=== PATIENT | female | born 1990 | race Two or more races ===

== ENCOUNTER 2020-05-10 09:09 | Emergency (ER) | payer OTHER, SELFPAY ==
--- NOTE | ~2020-05-10 | CT_ITS ---
EXAMINATION: HEAD CT WITHOUT CONTRAST CLINICAL INFORMATION: Fall COMPARISON: None TECHNIQUE: Axial images through the brain without contrast. Sagittal and coronal reconstructions on the technologist workstation were performed. Patient dose 6 9 5 mg/cm. FINDINGS: There is no evidence of an extra-axial collection. There is no evidence of intra-axial or extra-axial hemorrhage. The ventricles and extra-axial CSF spaces are appropriate. Baldwin-white matter differentiation is normal. No mass, mass effect or infarct is seen. Review at bone windows is normal. No skull fracture is seen. CT/CT abdomen pelvis w con IMPRESSION: Unremarkable exam EXAMINATION: CT of the chest, abdomen and pelvis with IV contrast CLINICAL INFORMATION: Trauma COMPARISON: None. TECHNIQUE: Axial images through the chest, abdomen and pelvis following oral and IV contrast. The patient received 85 mL Omnipaque 350 intravenous contrast. Sagittal and coronal reconstructions on the technologist workstation were performed. Patient dose 260+5 2 8 mg/cm FINDINGS: Chest: The lungs are clear. There is no pleural effusion or pleural thickening or pneumothorax. The heart and mediastinum are normal. No chest wall mass or enlarged axillary lymph nodes. Bony structures are unremarkable. Abdomen and pelvis: The liver spleen pancreas adrenal glands kidneys and gallbladder are normal. Small and large bowel is normal. No free air or free fluid is seen. Vascular structures are normal. No hernia is seen. The uterus and adnexa and bladder are normal. No fracture is seen. IMPRESSION: Unremarkable exam.
--- NOTE | ~2020-05-10 | XR_ITS ---
EXAMINATION: XR SHOULDER, RIGHT CLINICAL INFORMATION: Fall, trauma, pain COMPARISON: None TECHNIQUE: The right shoulder is imaged in 3 views. FINDINGS: There is no fracture or dislocation. The acromioclavicular alignment is normal. There are no visible rotator cuff calcifications. The right lung apex is clear. No pneumothorax or pleural reaction. XR/XR shoulder RT min 2V IMPRESSION: Normal right shoulder.
--- NOTE | ~2020-05-10 | CT_ITS ---
EXAMINATION: HEAD CT WITHOUT CONTRAST CLINICAL INFORMATION: Fall COMPARISON: None TECHNIQUE: Axial images through the brain without contrast. Sagittal and coronal reconstructions on the technologist workstation were performed. Patient dose 6 9 5 mg/cm. FINDINGS: There is no evidence of an extra-axial collection. There is no evidence of intra-axial or extra-axial hemorrhage. The ventricles and extra-axial CSF spaces are appropriate. Baldwin-white matter differentiation is normal. No mass, mass effect or infarct is seen. Review at bone windows is normal. No skull fracture is seen. CT/CT head/brain wo con IMPRESSION: Unremarkable exam EXAMINATION: CT of the chest, abdomen and pelvis with IV contrast CLINICAL INFORMATION: Trauma COMPARISON: None. TECHNIQUE: Axial images through the chest, abdomen and pelvis following oral and IV contrast. The patient received 85 mL Omnipaque 350 intravenous contrast. Sagittal and coronal reconstructions on the technologist workstation were performed. Patient dose 260+5 2 8 mg/cm FINDINGS: Chest: The lungs are clear. There is no pleural effusion or pleural thickening or pneumothorax. The heart and mediastinum are normal. No chest wall mass or enlarged axillary lymph nodes. Bony structures are unremarkable. Abdomen and pelvis: The liver spleen pancreas adrenal glands kidneys and gallbladder are normal. Small and large bowel is normal. No free air or free fluid is seen. Vascular structures are normal. No hernia is seen. The uterus and adnexa and bladder are normal. No fracture is seen. IMPRESSION: Unremarkable exam.
--- NOTE | ~2020-05-10 | XR_ITS ---
EXAMINATION: RIGHT KNEE X-RAY CLINICAL INFORMATION: Fall. Trauma. COMPARISON: None TECHNIQUE: 4 views of the right knee FINDINGS: Bone alignment is normal. No fracture or dislocation is seen. There is no joint effusion. There is soft tissue swelling over the patellar tendon. XR/XR knee RT 4V IMPRESSION: No fracture seen. Soft tissue swelling over the patellar tendon. EXAMINATION: Right ankle x-ray CLINICAL INFORMATION: Pain. Trauma. COMPARISON: None. TECHNIQUE: 3 views of the right ankle FINDINGS: Bone alignment is normal. No fracture or dislocation is seen. The ankle mortise is normal. Soft tissues are normal. IMPRESSION: Unremarkable examination.
--- NOTE | ~2020-05-10 | XR_ITS ---
EXAMINATION: RIGHT KNEE X-RAY CLINICAL INFORMATION: Fall. Trauma. COMPARISON: None TECHNIQUE: 4 views of the right knee FINDINGS: Bone alignment is normal. No fracture or dislocation is seen. There is no joint effusion. There is soft tissue swelling over the patellar tendon. XR/XR ankle RT min 3V IMPRESSION: No fracture seen. Soft tissue swelling over the patellar tendon. EXAMINATION: Right ankle x-ray CLINICAL INFORMATION: Pain. Trauma. COMPARISON: None. TECHNIQUE: 3 views of the right ankle FINDINGS: Bone alignment is normal. No fracture or dislocation is seen. The ankle mortise is normal. Soft tissues are normal. IMPRESSION: Unremarkable examination.
--- NOTE | ~2020-05-10 | CT_ITS ---
EXAMINATION: HEAD CT WITHOUT CONTRAST CLINICAL INFORMATION: Fall COMPARISON: None TECHNIQUE: Axial images through the brain without contrast. Sagittal and coronal reconstructions on the technologist workstation were performed. Patient dose 6 9 5 mg/cm. FINDINGS: There is no evidence of an extra-axial collection. There is no evidence of intra-axial or extra-axial hemorrhage. The ventricles and extra-axial CSF spaces are appropriate. Baldwin-white matter differentiation is normal. No mass, mass effect or infarct is seen. Review at bone windows is normal. No skull fracture is seen. CT/CT chest w con IMPRESSION: Unremarkable exam EXAMINATION: CT of the chest, abdomen and pelvis with IV contrast CLINICAL INFORMATION: Trauma COMPARISON: None. TECHNIQUE: Axial images through the chest, abdomen and pelvis following oral and IV contrast. The patient received 85 mL Omnipaque 350 intravenous contrast. Sagittal and coronal reconstructions on the technologist workstation were performed. Patient dose 260+5 2 8 mg/cm FINDINGS: Chest: The lungs are clear. There is no pleural effusion or pleural thickening or pneumothorax. The heart and mediastinum are normal. No chest wall mass or enlarged axillary lymph nodes. Bony structures are unremarkable. Abdomen and pelvis: The liver spleen pancreas adrenal glands kidneys and gallbladder are normal. Small and large bowel is normal. No free air or free fluid is seen. Vascular structures are normal. No hernia is seen. The uterus and adnexa and bladder are normal. No fracture is seen. IMPRESSION: Unremarkable exam.
[2020-05-10 09:45] VITALS: BP 135/64; PULSE 88; RESP 16; O2SAT 100; BMI 28.3
[2020-05-10 10:07] LABS: MANUAL DIFF FLAG NO
[2020-05-10 10:09] LABS: Basophils Percent Auto 0.2 % (0-2); Eosinophils Absolute Auto 0.1 X10*3/uL (0.0-0.4); Eosinophils Percent Auto 1.1 % (0-4); Imm Gran Abs Auto 0.02 X10*3/uL (0.00-0.03); Imm Gran Pct Auto 0.2 % (0.0-0.4); Lymphocytes Absolute Auto 2.7 X10*3/uL (1.2-4.9); Lymphocytes Percent Auto 28.8 % (20-40); Mean Corpuscular HGB Conc 34.1 g/dl (31.0-35.0); Mean Corpuscular Hemoglobin 31.2 pg (27.0-33.0); Mean Corpuscular Volume 91.3 fL (80-98); Mean Platelet Volume 9.7 fL (9.4-12.3); Monocytes Absolute Auto 0.8 X10*3/uL (0.1-1.2); Monocytes Percent Auto 8.1 % (2-11); Neutrophils Absolute Auto 5.8 X10*3/uL (2.0-8.3); Neutrophils Percent Auto 61.6 % (45-73); Platelet Count 305 X10*3/uL (160-400); Red Blood Count 4.49 X10*6/uL (4.20-5.50); Red Cell Distribution Width 13.2 % (11.0-16.0); White Blood Count 9.4 X10*3/uL (4.8-10.8)
[2020-05-10] MEDS: ondansetron HCL 4 MG/2 ML VIAL IVPUSH (10:15)
[2020-05-10] MEDS: 0.9 % Sodium Chloride 1,000 ML 999 ML IV (10:15)
[2020-05-10 10:22] LABS: Prothrombin Time 11.5 SEC (10.8-13.0)
[2020-05-10 10:29] LABS: Alanine Aminotransferase 13 U/L (0-31); Albumin Level 4.4 g/dL (3.5-5.0); Alkaline Phosphatase 81 U/L (39-117); Anion Gap 16 (12-20); Aspartate Amino Transferase 27 U/L (5-31); Blood Urea Nitrogen 9 mg/dL (9-16); Carbon Dioxide 26 mmol/L (22-29); Chloride 104 mmol/L (96-108); Creatinine Clr Calc Pharmacy 91.8; Estimated Glomerular Filt Rate > 60; Glucose Random 85 mg/dL (60-115); Potassium 4.2 mmol/L (3.3-5.1); Sodium 142 mmol/L (135-145); Total Protein 7.7 g/dL (6.5-8.0)
[2020-05-10 10:35] LABS: HCG Quantitative < 2 mIU/mL
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
[2020-05-10 12:09] VITALS: BP 128/88; RESP 18; TEMP 36.9; O2SAT 98
[2020-05-10] MEDS: oxyCODONE HCl Immed Release 5 MG TABLET PO (12:47)
== END 2020-05-10 13:27 | disposition home or self-care (01) ==
PROVIDERS: Nurse Practitioner Primary Care; Emergency Provider Emergency Medicine
DX: S93.401A Sprain of unspecified ligament of right ankle, initial encounter (principal); S96.911A Strain of unspecified muscle and tendon at ankle and foot level, right foot, initial encounter; S39.012A Strain of muscle, fascia and tendon of lower back, initial encounter; S40.011A Contusion of right shoulder, initial encounter; S80.211A Abrasion, right knee, initial encounter; V86.55XA Driver of 3- or 4- wheeled all-terrain vehicle (ATV) injured in nontraffic accident, initial encounter; R11.0 Nausea; F17.200 Nicotine dependence, unspecified, uncomplicated; Y93.89 Activity, other specified; Y92.096 Garden or yard of other non-institutional residence as the place of occurrence of the external cause; Y99.8 Other external cause status
CPT/HCPCS: 36415; 70450; 71260; 73030; 73564; 73610; 74177; 80053; 84702; 85025; 85610; 85730; 96361; 96374; 99284; J2405; Q9967

== ENCOUNTER 2020-07-11 01:00 | Emergency (ER) | payer OTHER, SELFPAY ==
[2020-07-11] VITALS (13 sets, daily range): BP systolic 109–141; BP diastolic 52–86; PULSE 81–144; RESP 16–25; TEMP 36.2–37; O2SAT 95–98; BMI 26.4
--- NOTE | 2020-07-11 01:08 | ED_ITS ---
HPI - Alcohol General Chief Complaint: ETOH/Substance Use Stated Complaint: etoh combative. Time Seen by Provider: 07/11/20 01:08 Source: EMS Mode of arrival: EMS History of Present Illness HPI narrative: 30-year-old female who was found in her apartment complex going from door to door being on people's AC units and observed to be intoxicated. Please were involved to restrain patient as she was unwilling and uncooperative when attempts were made to deescalate patient's observed agitation. Otherwise, currently patient is a poor historian and remaining HPI will be obtained after patient becomes more sober. Related Data Previous Rx's Medication Instructions Recorded ibuprofen 800 mg PO Q8H PRN #30 tab 05/10/20 oxycodone 5 mg PO Q8H PRN 3 Days #10 tab 05/10/20 Allergies Allergy/AdvReac Type Severity Reaction Status Date / Time gluten [GLUTEN] Allergy Unknown STOMACH Unverified 11/06/19 19:06 UPSET Review of Systems Review of Systems: Yes Unobtainable due to mental condition PMFSH Past Medical History Source: nursing notes reviewed Medical History Celiac disease Social History Social History Alcohol intake: current Alcohol intake frequency: does not drink Smoking Status: Current every day smoker Use of substances other than those prescribed or required for medical reasons: Yes Substance Use Type: Marijuana Advance Directives: No Advance Directives Information Provided: No Patient : No Physical Exam Vital Signs: Vital Signs: Last Vital Signs Temp 98.2 F 07/11/20 08:00 Pulse 81 07/11/20 08:00 Resp 18 07/11/20 08:00 BP 132/52 L 07/11/20 08:00 Pulse Ox 95 07/11/20 08:00 Body Mass Index 26.4 VITAL SIGNS: Reviewed. GENERAL: Well developed, well nourished, moderate to severely agitated HEAD: Normocephalic/atraumatic EYES: PERRLA, EOMI OROPHARYNX: no oral lesions noted, posterior pharynx clear, noted whitish substance at the corner of patient's mouth NECK: Supple, no adenopathy LUNGS: Normal breath sounds. No adventitious sounds or accessory muscle use. SpO2<95> CARDIOVASCULAR: Regular rate and rhythm without noted murmurs ABDOMEN: Soft, non-tender, non-distended with bowel sounds. Abrasions noted to bilateral hands NEUROLOGIC: Alert and oriented x 2. PSYCH: Patient agitated, screaming and yelling, attempting to bite healthcare providers. Course Course Course Narrative: This is a 30-year-old female with history and clinical presentation consistent with substance intoxication thought to be alcohol but possibly other substances as well. Patient had to be chemically and physically restrained for her safety as well as healthcare worker safety as she was unable to be deescalated. DCF was notified as there were concerns that her 2 small children were in the vicinity while she was intoxicated and belligerent. Review of all investigations negative for any acute findings other than alcohol and marijuana. On re-evaluation much later in the morning patient is noted to be calm and cooperative and apologetic regarding her actions. She denies any suicidal intent or thoughts leading to her outburst last night. She states that her neighbor gave her some new alcohol that she did not even realize how much content it must have had. She states she can get a safe ride home and is stable for discharge to the transportation provided by her family. Behavioral health team also evaluated the patient and recommends outpatient therapy and treatment but otherwise feels that she is a safe discharge. Reevaluation(s) Reevaluation #1: On re-evaluation patient is much more calm and will attempt to remove physical restraint. Time: 02:20 [facility] - Alcohol Lab Data Labs: Lab Results 07/11/20 07/11/20 07/11/20 Range/Units 02:39 03:00 03:00 Urine Color STRAW Urine Appearance HAZY Urine pH 6.0 (5.0-8.0) Ur Specific Herscher <= 1.005 (1.005-1.025) Urine Protein NEG (NEG-TRACE) MG/DL Urine Glucose (UA) NEG (NEG) MG/DL Urine Ketones NEG (NEG) MG/DL Urine Blood TRACE (NEG) Urine Nitrite NEG (NEG) Ur Leukocyte Esterase NEG (NEG) Urine RBC 0-2 (0) /HPF Urine WBC 0-2 (0-4) /HPF Ur Squamous Epith Cells 3+ /LPF Amorphous Sediment TRACE /LPF Urine Bacteria TRACE /LPF Urine Test NEGATIVE (NEGATIVE) Urine Opiates Screen (Not Detect) Ur Barbiturates Screen (Not Detect) Ur Phencyclidine Scrn (Not Detect) Ur Amphetamines Screen (Not Detect) U Benzodiazepines Scrn (Not Detect) Urine Cocaine Screen (Not Detect) U Marijuana (THC) Screen (Not Detect) Ethyl Alcohol 299 mg/dL 07/11/20 Range/Units 03:00 Urine Color Urine Appearance Urine pH (5.0-8.0) Ur Specific Herscher (1.005-1.025) Urine Protein (NEG-TRACE) MG/DL Urine Glucose (UA) (NEG) MG/DL Urine Ketones (NEG) MG/DL Urine Blood (NEG) Urine Nitrite (NEG) Ur Leukocyte Esterase (NEG) Urine RBC (0) /HPF Urine WBC (0-4) /HPF Ur Squamous Epith Cells /LPF Amorphous Sediment /LPF Urine Bacteria /LPF Urine Test (NEGATIVE) Urine Opiates Screen Not Detected (Not Detect) Ur Barbiturates Screen Not Detected (Not Detect) Ur Phencyclidine Scrn Not Detected (Not Detect) Ur Amphetamines Screen Not Detected (Not Detect) U Benzodiazepines Scrn Not Detected (Not Detect) Urine Cocaine Screen Not Detected (Not Detect) U Marijuana (THC) Screen POSITIVE H (Not Detect) Ethyl Alcohol mg/dL Discharge Plan Discharge Clinical Impression: Abrasion, Alcohol intoxication Patient Disposition: Home, Self-Care Instructions: Alcohol Intoxication (ED), Abrasion (ED) Additional Instructions: Please follow-up with the recommendations provided to you by the behavioral he alth team. Please follow-up with your primary care provider in 2-3 days. Return to the ER if you experience any worsening of your symptoms. Prescriptions: No Action oxycodone 5 mg tablet 5 mg PO Q8H PRN (Reason: pain) 3 Days Qty: 10 RF: 0 ibuprofen 800 mg tablet 800 mg PO Q8H PRN (Reason: pain) Qty: 30 RF: 0 Referrals: Physician,Unknown [Primary Care Provider] - 2 days
[2020-07-11] MEDS: LORazepam 2 MG/ML VIAL IM (01:14)
[2020-07-11] MEDS: diphenhydrAMINE HCL 50 MG/ML VIAL 25 MG IM (01:14)
[2020-07-11] MEDS: OLANZapine 10 MG VIAL 5 MG IM (01:54)
[2020-07-11 03:08] LABS: Ethanol 299 mg/dL
[2020-07-11 03:10] LABS: Glucose Urine UA NEG (NEG); Leukocyte Esterase Urine NEG (NEG); Nitrite Urine NEG (NEG); Specific Gravity - Urine <= 1.005 (1.005-1.025); Urine Blood TRACE (NEG); Urine Ketones NEG (NEG); Urine Protein NEG (NEG-TRACE)
[2020-07-11 03:20] LABS: Appearance Urine HAZY; Color Urine STRAW
[2020-07-11 03:44] LABS: Amphetamine Screen Urine Not Detected (Not Detect); Barbiturates, Urine Not Detected (Not Detect); Benzodiazepines Screen Urine Not Detected (Not Detect); Cannabinoid Screen Urine POSITIVE (Not Detect); Cocaine Screen Urine Not Detected (Not Detect); Opiate Screen Urine Not Detected (Not Detect); Phencyclidine Screen Urine Not Detected (Not Detect)
[2020-07-11 03:47] LABS: Amorphous Sediment Urine TRACE /LPF; Bacteria Urine TRACE /LPF; RBC Urine 0-2 /HPF (0); Squamous Epithelial Cell Urine 3+ /LPF; UPreg QC Valid YES; Urine Pregnancy NEGATIVE (NEGATIVE); WBC Urine 0-2 /HPF (0-4)
--- NOTE | 2020-07-11 06:07 | PC.NURSE ---
PREVIOUS NURSE WILBUR Rice RN WILL CALL DCF REGARDING CHILDREN LEFT AT HOME BY THEMSELVES OR WITH NEIGHBORS. PT WAKES UP AND IS UNCOOPERATIVE SITTING ON FLOOR OF BATHROOM AND REFUSING TO GET UP WHEN PT GETS UP SHE LIFTS SHIRT UP TO SHOW SECURITY GUARDS HER BREASTS AND STATES ISN'T THAT WHAT YOU WANA SEE? PT CONTINUES TO PULL PANTS DOWN AND SIT ON TOILET IN FRONT OF APPROX 5 PEOPLE. PT YELLING AT STAFF AND NOT FOLLOWING SIMPLE COMMANDS.
--- NOTE | 2020-07-11 06:44 | PC.NURSE ---
spoke with Mallika in [facility] office ( ) to file report paperwork faxed to Felisa [facility] office (fax: [phone])
--- NOTE | 2020-07-11 08:10 | PC.NURSE ---
[facility] AT BEDSIDE SPEAKING TO PT
--- NOTE | 2020-07-11 10:02 | PC.NURSE ---
pt calm and cooperative, answering question appropriately, states that her left hand and right hurts, few small scrapes on the palm pt given bacatracin and bandades, pt states she really does not remember what she did last night
[2020-07-11] MEDS: Bacitracin Oint 14 GM TUBE 1 APPL TOPICAL (10:41)
== END 2020-07-11 10:58 | disposition home or self-care (01) ==
PROVIDERS: Emergency Provider Student in an Organized Health Care Education/Training Program
DX: S60.512A Abrasion of left hand, initial encounter (principal); S60.511A Abrasion of right hand, initial encounter; M79.641 Pain in right hand; M79.642 Pain in left hand; F10.129 Alcohol abuse with intoxication, unspecified; Y90.8 Blood alcohol level of 240 mg/100 ml or more; Y33.XXXA Other specified events, undetermined intent, initial encounter; Y93.9 Activity, unspecified; Y92.9 Unspecified place or not applicable; Y99.9 Unspecified external cause status; Z79.899 Other long term (current) drug therapy; Z71.41 Alcohol abuse counseling and surveillance of alcoholic
CPT/HCPCS: 36415; 80307; 80320; 81001; 81025; 96372; 99284; J1200; J2060

== ENCOUNTER 2021-06-22 08:51 | Emergency (ER) | payer OTHER, SELFPAY ==
--- NOTE | ~2021-06-22 | CT_ITS ---
EXAMINATION: CT BRAIN AND CT CERVICAL SPINE WITHOUT CONTRAST. CLINICAL INFORMATION: Fell down 14 stairs. Now presents with head injury, nausea and vomiting. COMPARISON: CT brain 05/10/2020 TECHNIQUE: 5 mm thin axial and reformatted 2 mm thin sagittal and coronal images of brain were obtained. Subsequently axial 3 mm thin and reformatted 2 mm thin sagittal and coronal images of cervical spine were obtained. DLP [id number]. FINDINGS: Brain: There is no acute intra-axial, extra-axial bleed, masses or midline shift. There is no acute infarct in evolution. There is no edema. The lateral ventricles are symmetrical in size and configuration without enlargement. Bone windows reveal no calvarial abnormality. There is no scalp soft tissue abnormality. Bilateral paranasal sinuses and mastoid air cells are well-aerated. Cervical spine: There is mild straightening of cervical lordosis. The vertebral heights, alignment and disc heights are normal. The craniovertebral junction and the C1-C2 alignment is normal. There is no visible acute fracture, dislocation or subluxation seen. The prevertebral and paravertebral soft tissues are normal. The airways widely patent. CT/CT head/brain wo con IMPRESSION: No acute intracranial process seen. No visible acute fracture or dislocation of cervical spine
--- NOTE | ~2021-06-22 | CT_ITS ---
EXAMINATION: CT CHEST, ABDOMEN PELVIS WITHOUT CONTRAST.. CLINICAL INFORMATION: Fall. Left upper quadrant left lower quadrant tenderness. COMPARISON: None TECHNIQUE: 5 mm thin axial and reformatted 3 mm thin sagittal and coronal images of chest, abdomen and pelvis were obtained without contrast. FINDINGS: Chest: The lungs are well-expanded and clear of acute pneumonic process, contusion or consolidation. There is no pleural effusion, thickening or pneumothorax. Heart size and the great vessels are normal caliber. Thyroid lobes are symmetrical and normal. No mediastinal hematoma or mass seen. Central trachea and the bronchi widely patent. There is no abnormal axillary lymph nodes or chest wall mass. Bone windows reveal no acute fracture involving the bony thorax. The soft tissues are normal. Abdomen and pelvis: The liver is normal size, density and contour. No focal lesion or intrahepatic ductal dilatation seen. The gallbladder is unremarkable. Visualized spleen, pancreas and bilateral adrenal glands are unremarkable. Both kidneys are normal size, shape and position. No radiopaque renal calculi or hydronephrosis seen. The abdominal aorta is of normal caliber. No intra-abdominal bleed or lymph nodes seen. There is scattered stool and gas in colon without distention. No free air seen. The abdominal wall is unremarkable. Imaging to the pelvis reveals unremarkable urinary bladder. The uterus is anteverted and appears unremarkable. No free fluid. Bone windows reveal no compression fracture of thoracolumbar spine. No visible fracture identified CT/CT abdomen pelvis w con IMPRESSION: No acute process seen in the chest, abdomen and pelvis.
--- NOTE | ~2021-06-22 | CT_ITS ---
EXAMINATION: CT CHEST, ABDOMEN PELVIS WITHOUT CONTRAST.. CLINICAL INFORMATION: Fall. Left upper quadrant left lower quadrant tenderness. COMPARISON: None TECHNIQUE: 5 mm thin axial and reformatted 3 mm thin sagittal and coronal images of chest, abdomen and pelvis were obtained without contrast. FINDINGS: Chest: The lungs are well-expanded and clear of acute pneumonic process, contusion or consolidation. There is no pleural effusion, thickening or pneumothorax. Heart size and the great vessels are normal caliber. Thyroid lobes are symmetrical and normal. No mediastinal hematoma or mass seen. Central trachea and the bronchi widely patent. There is no abnormal axillary lymph nodes or chest wall mass. Bone windows reveal no acute fracture involving the bony thorax. The soft tissues are normal. Abdomen and pelvis: The liver is normal size, density and contour. No focal lesion or intrahepatic ductal dilatation seen. The gallbladder is unremarkable. Visualized spleen, pancreas and bilateral adrenal glands are unremarkable. Both kidneys are normal size, shape and position. No radiopaque renal calculi or hydronephrosis seen. The abdominal aorta is of normal caliber. No intra-abdominal bleed or lymph nodes seen. There is scattered stool and gas in colon without distention. No free air seen. The abdominal wall is unremarkable. Imaging to the pelvis reveals unremarkable urinary bladder. The uterus is anteverted and appears unremarkable. No free fluid. Bone windows reveal no compression fracture of thoracolumbar spine. No visible fracture identified CT/CT chest w con IMPRESSION: No acute process seen in the chest, abdomen and pelvis.
--- NOTE | ~2021-06-22 | CT_ITS ---
EXAMINATION: CT BRAIN AND CT CERVICAL SPINE WITHOUT CONTRAST. CLINICAL INFORMATION: Fell down 14 stairs. Now presents with head injury, nausea and vomiting. COMPARISON: CT brain 05/10/2020 TECHNIQUE: 5 mm thin axial and reformatted 2 mm thin sagittal and coronal images of brain were obtained. Subsequently axial 3 mm thin and reformatted 2 mm thin sagittal and coronal images of cervical spine were obtained. DLP 1215. FINDINGS: Brain: There is no acute intra-axial, extra-axial bleed, masses or midline shift. There is no acute infarct in evolution. There is no edema. The lateral ventricles are symmetrical in size and configuration without enlargement. Bone windows reveal no calvarial abnormality. There is no scalp soft tissue abnormality. Bilateral paranasal sinuses and mastoid air cells are well-aerated. Cervical spine: There is mild straightening of cervical lordosis. The vertebral heights, alignment and disc heights are normal. The craniovertebral junction and the C1-C2 alignment is normal. There is no visible acute fracture, dislocation or subluxation seen. The prevertebral and paravertebral soft tissues are normal. The airways widely patent. CT/CT cervical spine wo con IMPRESSION: No acute intracranial process seen. No visible acute fracture or dislocation of cervical spine
[2021-06-22 09:17] VITALS: BP 146/71; PULSE 75; RESP 16; TEMP 36.9; O2SAT 98; BMI 28.3
[2021-06-22] MEDS: Ondansetron ODT 4 MG TAB.RAPDIS TRANSLINGU (09:24)
[2021-06-22 09:51] LABS: HCG Quantitative < 2 mIU/mL
--- NOTE | 2021-06-22 10:08 | ED_ITS ---
HPI - Head Injury General Chief complaint: Head Injury Stated complaint: fell down stairs r head inj vomiting Time Seen by Provider: 06/22/21 09:31 Source: patient Mode of arrival: ambulatory History of Present Illness HPI Narrative: 31-year-old female with a past medical history of celiac disease presenting to the ED complaining of headache, nausea, vomiting, and left-sided ribs/abdominal pain s/p falling down 14 stairs yesterday. Admits to hitting head, denies LOC. Denies symptoms prior to fall. Denies SOB, diarrhea, neck/back pain, vision change/loss, numbness/tingling/weakness, urinary incontinence/retention Complaint: head injury, head pain and fall Onset (ago): hour(s) Related Data Previous Rx's Medication Instructions Recorded ibuprofen 800 mg tablet 800 mg PO Q8H PRN #30 tab 05/10/20 oxycodone 5 mg tablet 5 mg PO Q8H PRN 3 Days #10 tab 05/10/20 ondansetron 4 mg disintegrating 4 mg PO Q8H PRN #10 tab 06/22/21 tablet Allergies Allergy/AdvReac Type Severity Reaction Status Date / Time gluten [GLUTEN] Allergy Unknown STOMACH Verified 06/22/21 09:17 UPSET Review of Systems Review of Systems: Constitutional: No Fever, No Chills, No Fatigue, No Malaise ENT/Mouth: No Ear Pain, No Nasal Congestion, No sore throat, No Rhinorrhea, No Swallowing Difficulty Eyes: No Eye Pain, No Swelling, No Redness, No Discharge, No Vision Changes Cardiovascular: + Chest Wall Pain, No SOB, No Edema, No Palpitations Respiratory: No Cough, No Sputum, No Dyspnea Gastrointestinal: No Nausea, No Vomiting, No Diarrhea, No Constipation, + Abdominal pain Genitourinary: No Dysuria, No Hematuria, No Urinary Incontinence/retention, No Flank Pain Musculoskeletal: No joint pain, + Myalgias, No Joint Swelling Skin: No Skin Lesions, No rash Neuro: No Weakness, No Numbness, No Paresthesias, No Loss of Consciousness, No Dizziness, + Headache Yes all other systems are reviewed and are negative Neurologic: Denies Abnormal speech present and Denies Sensory deficit (Neuro) REPLACED BY [facility] Past Medical History Attestation statement: The following information was validated with the patient. Medical History Celiac disease Social History Social History Alcohol intake: current Alcohol intake frequency: does not drink Substance Use Type: Marijuana Advance Directives: No Advance Directives Information Provided: No Physical Exam Vital Signs: Vital Signs: Last Vital Signs Temp 98.5 F 06/22/21 09:17 Pulse 75 06/22/21 09:17 Resp 16 06/22/21 09:17 BP 146/71 H 06/22/21 09:17 Pulse Ox 98 06/22/21 09:17 BMI result Body Mass Index 28.3 Const: Other: Tearful, dry heaving General: cooperative, healthy appearing, no acute distress and anxious Orientation/consciousness: patient oriented x3 Limitations: no limitations HEENT: Other: + ecchymosis to central forehead with tenderness to palpation. No palpable skull depression Head: Yes normal to inspection Ears: hearing grossly normal bilaterally General nose exam: Normal external nose present Face and sinus: Yes normal facial exam Mouth: Normal oral and palatal mucosa present Throat: Yes posterior oropharynx normal, Yes tonsils normal and Yes uvula midline Eyes: General: appearance normal, both eyes and all related structures Pupils: Equal, round and reactive pupils present EOM: EOMs intact bilaterally Direct Ophthalmoscopy: normal light reflex Neck: Other: No midline cervical spinous tenderness Neck: Yes normal visual inspection and Yes no meningeal signs Chest: Other: + left anterior lateral chest wall tenderness to palpation reproducing subje ctive complaint. No ecchymosis/erythema Chest palpation & inspection: no crepitus and tenderness Resp: Effort & Inspection: normal respiratory effort and no respiratory distress Auscultation: clear to auscultation bilaterally, no crackles and no wheezes Cardio: Rate: regular rate Heart sounds: S1 normal heart sound present and S2 normal heart sound present GI: Inspection: Yes normal to inspection Palpation (GI): Soft to palpation, Tenderness to palpation present (GI) in the LLQ and in the LUQ, no guarding and not rigid : General: Yes no CVA tenderness Back/Spine/Pelvis: Other: No midline thoracic/lumbar spinous tenderness/step-off or deformity. + bilateral lumbar paraspinal tenderness to palpation Back: no CVA tenderness Skin: Rashes: no rashes Wounds: no wounds Neuro: General: patient oriented x3, gait normal, tone normal, moves all extremities, no meningeal signs and no focal motor deficits Cranial nerves: Yes CN's II-XII intact bilaterally, Yes Equal, round and reactive pupils present and Yes Bilaterally intact EOM present Cognition (Neuro): normal cognition Speech: No Abnormal speech present Gait exam (Neuro): Normal gait present Motor exam (neuro): 5/5 motor strength present throughout Sensory Exam: No Sensory deficit (Neuro) Extrem: General: Yes normal to inspection Course Course Course Narrative: -no leukocytosis. H&H stable. AST mildly elevated. -head and C-spine CT without acute findings. -CT chest/abdomen/pelvis unremarkable -patient tolerated p.o. in the ED without nausea or vomiting >> results discussed with patient and family at bedside including worrisome signs and symptoms and strict return precautions and need close follow-up with PCP. Patient verbalized understanding feel safe for discharge home MDM - Head Injury MDM Narrative Medical decision making narrative: 31-year-old female with a past medical history of celiac disease presenting to the ED complaining of headache, nausea, vomiting, and left-sided ribs/abdominal pain s/p falling down 14 stairs yesterday. On exam vital signs stable, nontoxic appearing, tearful, anxious, physical exam as above, no midline spinous tenderness throughout, no red flag symptoms, no focal neuro deficits. Concern for ICH/epidural hematoma vs concussion vs rib fractures. Rule out intra- abdominal injury/chronic injury due to trauma Plan: Labs, head/C-spine/chest/abdomen/pelvis CT Differential Diagnosis Differential diagnosis: Likely concussion without loss of consciousness, epidural hematoma and closed head injury Medical Records Attestation: I reviewed the patient's medical records. Lab Data Attestation: I reviewed the patient's lab results. Result diagrams: 06/22/21 10:04 06/22/21 10:04 Labs: Lab Results 06/22/21 06/22/21 06/22/21 Range/Units 09:25 10:04 10:04 WBC 9.9 (4.8-10.8) X10*3/uL RBC 4.12 L (4.20-5.50) X10*6/uL Hgb 13.4 (12.0-16.0) g/dl Hct 38.4 (37.0-47.0) % MCV 93.2 (80.0-98.0) fL MCH 32.5 (27.0-33.0) pg MCHC 34.9 (31.0-35.0) g/dl RDW 13.5 (11.0-16.0) % Plt Count 326 (160-400) X10*3/uL MPV 9.7 (9.4-12.3) fL Immature Gran % (Auto) 0.3 (0.0-0.4) % Neut % (Auto) 71.7 (45-73) % Lymph % (Auto) 19.6 L (20-40) % Randolph % (Auto) 8.2 (2-11) % Eos % (Auto) 0.1 (0-4) % Baso % (Auto) 0.1 (0-2) % Lymph # (Auto) 1.9 (1.2-4.9) X10*3/uL Randolph # (Auto) 0.8 (0.1-1.2) X10*3/uL Eos # (Auto) 0.0 (0.0-0.4) X10*3/uL Baso # (Auto) 0.0 (0.0-0.2) X10*3/uL Abs Immat Gran (auto) 0.03 (0.00-0.03) X10*3/uL Absolute Neuts (auto) 7.1 (2.0-8.3) x10*3/uL Absolute Nucleated RBC 0.000 (0.0-0.012) X10*3/uL Nucleated RBC % (auto) 0.0 (0.0-0.2) /100WBC PT 12.1 (9.9-13.0) SEC INR 1.1 (0.9-1.1) Sodium (135-145) mmol/L Potassium (3.3-5.1) mmol/L Chloride (96-108) mmol/L Carbon Dioxide (22-29) mmol/L Anion Gap (12-20) BUN (9-16) mg/dL Creatinine (0.5-1.4) mg/dL Estim Creat Clear Calc Estimated GFR Random Glucose (60-115) mg/dL Calcium (8.4-10.2) mg/dL Total Bilirubin (0.0-1.0) mg/dL Direct Bilirubin (0.0-0.5) mg/dL AST (5-31) U/L ALT (0-31) U/L Alkaline Phosphatase (39-117) U/L Total Protein (6.5-8.0) g/dL Albumin (3.5-5.0) g/dL Lipase (8-78) U/L Beta HCG, Quant < 2 mIU/mL 06/22/21 Range/Units 10:04 WBC (4.8-10.8) X10*3/uL RBC (4.20-5.50) X10*6/uL Hgb (12.0-16.0) g/dl Hct (37.0-47.0) % MCV (80.0-98.0) fL MCH (27.0-33.0) pg MCHC (31.0-35.0) g/dl RDW (11.0-16.0) % Plt Count (160-400) X10*3/uL MPV (9.4-12.3) fL Immature Gran % (Auto) (0.0-0.4) % Neut % (Auto) (45-73) % Lymph % (Auto) (20-40) % Randolph % (Auto) (2-11) % Eos % (Auto) (0-4) % Baso % (Auto) (0-2) % Lymph # (Auto) (1.2-4.9) X10*3/uL Randolph # (Auto) (0.1-1.2) X10*3/uL Eos # (Auto) (0.0-0.4) X10*3/uL Baso # (Auto) (0.0-0.2) X10*3/uL Abs Immat Gran (auto) (0.00-0.03) X10*3/uL Absolute Neuts (auto) (2.0-8.3) x10*3/uL Absolute Nucleated RBC (0.0-0.012) X10*3/uL Nucleated RBC % (auto) (0.0-0.2) /100WBC PT (9.9-13.0) SEC INR (0.9-1.1) Sodium 139 (135-145) mmol/L Potassium 3.8 (3.3-5.1) mmol/L Chloride 100 (96-108) mmol/L Carbon Dioxide 25 (22-29) mmol/L Anion Gap 18 (12-20) BUN 12 (9-16) mg/dL Creatinine 0.89 (0.5-1.4) mg/dL Estim Creat Clear Calc 80.8 Estimated GFR > 60 Random Glucose 88 (60-115) mg/dL Calcium 9.1 (8.4-10.2) mg/dL Total Bilirubin 1.0 (0.0-1.0) mg/dL Direct Bilirubin 0.4 (0.0-0.5) mg/dL AST 42 H D (5-31) U/L ALT 25 (0-31) U/L Alkaline Phosphatase 66 (39-117) U/L Total Protein 8.4 H (6.5-8.0) g/dL Albumin 4.4 (3.5-5.0) g/dL Lipase 19 (8-78) U/L Beta HCG, Quant mIU/mL Discharge Plan Discharge Clinical Impression: Closed head injury, Nausea & vomiting Patient Disposition: Home, Self-Care Instructions: Head Injury (ED), Acute Nausea and Vomiting (ED) Additional Instructions: Your CT scans were unremarkable. You likely have a concussion from her injury. Practice brain rest, avoid bright lights, TV screens, phone screens Take Tylenol and Motrin as needed. Ice painful areas Zofran as antinausea medication, please take as needed for nausea and vomiting. Please follow-up with her doctor. If symptoms persist or worsen, you are unable to eat or drink, or persistent nausea vomiting please return to the ED Prescriptions: New ondansetron 4 mg tablet,disintegrating 4 mg PO Q8H PRN (Reason: nausea and vomiting) Qty: 10 0RF No Action oxycodone 5 mg tablet 5 mg PO Q8H PRN (Reason: pain) 3 Days Qty: 10 0RF ibuprofen 800 mg tablet 800 mg PO Q8H PRN (Reason: pain) Qty: 30 0RF Referrals: Physician,Unknown J [Primary Care Provider] - 5 days
[2021-06-22] MEDS: 0.9 % Sodium Chloride 1,000 ML 999 ML IV (10:09)
[2021-06-22 10:17] LABS: MANUAL DIFF FLAG NO
[2021-06-22 10:18] LABS: Basophils Percent Auto 0.1 % (0-2); Eosinophils Percent Auto 0.1 % (0-4); Hematocrit 38.4 % (37.0-47.0); Hemoglobin 13.4 g/dl (12.0-16.0); Imm Gran Abs Auto 0.03 X10*3/uL (0.00-0.03); Imm Gran Pct Auto 0.3 % (0.0-0.4); Lymphocytes Absolute Auto 1.9 X10*3/uL (1.2-4.9); Lymphocytes Percent Auto 19.6 % (20-40); Mean Corpuscular HGB Conc 34.9 g/dl (31.0-35.0); Mean Corpuscular Hemoglobin 32.5 pg (27.0-33.0); Mean Corpuscular Volume 93.2 fL (80.0-98.0); Mean Platelet Volume 9.7 fL (9.4-12.3); Monocytes Absolute Auto 0.8 X10*3/uL (0.1-1.2); Monocytes Percent Auto 8.2 % (2-11); Neutrophils Absolute Auto 7.1 x10*3/uL (2.0-8.3); Neutrophils Percent Auto 71.7 % (45-73); Platelet Count 326 X10*3/uL (160-400); Red Blood Count 4.12 X10*6/uL (4.20-5.50); Red Cell Distribution Width 13.5 % (11.0-16.0); White Blood Count 9.9 X10*3/uL (4.8-10.8)
[2021-06-22 10:28] LABS: INTERNATIONAL NORM RATIO 1.1 (0.9-1.1); Prothrombin Time 12.1 SEC (9.9-13.0)
[2021-06-22 10:34] LABS: Alanine Aminotransferase 25 U/L (0-31); Albumin Level 4.4 g/dL (3.5-5.0); Alkaline Phosphatase 66 U/L (39-117); Anion Gap 18 (12-20); Aspartate Amino Transferase 42 U/L (5-31); Bilirubin Direct 0.4 mg/dL (0.0-0.5); Blood Urea Nitrogen 12 mg/dL (9-16); Calcium 9.1 mg/dL (8.4-10.2); Carbon Dioxide 25 mmol/L (22-29); Chloride 100 mmol/L (96-108); Creatinine Clr Calc Pharmacy 80.8; Estimated Glomerular Filt Rate > 60; Glucose Random 88 mg/dL (60-115); Lipase 19 U/L (8-78); Potassium 3.8 mmol/L (3.3-5.1); Sodium 139 mmol/L (135-145); Total Protein 8.4 g/dL (6.5-8.0)
[2021-06-22] MEDS: iohexoL 350 MG/ML 100 ML INFUS..BTL IV (12:09)
== END 2021-06-22 14:38 | disposition home or self-care (01) ==
PROVIDERS: Physician Assistant; Emergency Provider Emergency Medicine
DX: S09.90XA Unspecified injury of head, initial encounter (principal); R11.2 Nausea with vomiting, unspecified; K90.0 Celiac disease; W10.9XXA Fall (on) (from) unspecified stairs and steps, initial encounter; Y93.9 Activity, unspecified; Y92.9 Unspecified place or not applicable; Y99.9 Unspecified external cause status
CPT/HCPCS: 36415; 70450; 71260; 72125; 74177; 80048; 80076; 83690; 84702; 85025; 85610; 96360; 99284; Q9967

== ENCOUNTER 2024-01-07 07:49 | Inpatient (IN) | payer OTHER, SELFPAY ==
[2024-01-07] VITALS (7 sets, daily range): BP systolic 103–122; BP diastolic 58–74; PULSE 65–88; RESP 16–18; TEMP 36.5–37.6; O2SAT 96–100; BMI 34.0; BMI 36.6
--- NOTE | 2024-01-07 | ECG_ITS ---
Test Reason : SEIZURE Blood Pressure : / mmHG Vent. Rate : 071 BPM Atrial Rate : 071 BPM P-R Int : 154 ms QRS Dur : 086 ms QT Int : 402 ms P-R-T Axes : 059 045 023 degrees QTc Int : 436 ms Normal sinus rhythm with sinus arrhythmia Normal ECG No previous ECGs available Referred By: Mandi Forrest Electronically Signed By:BRIELLE FIGUEROA MD
--- NOTE | ~2024-01-07 | MR_ITS ---
EXAMINATION: MR BRAIN WITHOUT CONTRAST CLINICAL INFORMATION: Seizures. Right-sided weakness. Left frontoparietal encephalopathy. COMPARISON: Correlated to CT dated January 07, 2024. TECHNIQUE: MRI of the brain was obtained using routine sequences without contrast. FINDINGS: Left frontoparietal encephalomalacia resulting in hyperintense FLAIR signal and the cerebral cortex and prominence of the extra-axial CSF spaces in cerebral sulci are at the left pre and postcentral gyri and left frontal opercular region. No restricted diffusion. No acute intracranial hemorrhage, mass effect, midline shift, hydrocephalus or herniation. Baldwin-white matter differentiation is normal. Posterior cranial fossa contents demonstrated no acute intracranial hemorrhage or mass effect. No gross signal abnormality. No signal abnormality or volume loss in the hippocampi. Flow-void signal within the main cerebral vessels is normal. Sellar/suprasellar region is normal. Craniocervical junction is intact and normal. Midline structures are normal. MR/MR head/brain wo con IMPRESSION: No acute brain abnormality. Encephalomalacia resulting in minimal gliosis left frontoparietal. Prior vascular insult should be considered. Underlying vascular malformation or gross mass is not identified. Electronically signed by: Palmer Bach MD 01/07/2024 03:33 PM EST
--- NOTE | ~2024-01-07 | CT_ITS ---
EXAMINATION: CT HEAD WITHOUT CONTRAST CLINICAL INFORMATION: Seizure x2, right-sided weakness, headache R/O ble COMPARISON: CT dated June 22, 2021. TECHNIQUE: Contiguous axial imaging was performed from the skull base to vertex without intravenous administration of contrast. This CT examination was performed using dose optimization techniques as appropriate, variously including the following: *Automated exposure control *Adjustment of mA and/or kV according to patient size (this includes techniques or standardized protocols for targeted exams where dose is matched to indication/reason for exam; i.e. extremities or head) *Use of iterative reconstruction technique DLP: 680 mGy-cm FINDINGS: Bony calvarium is intact. Skull base is intact. No gross soft tissue scalp hematoma/contusion. No acute intracranial hemorrhage, mass effect, midline shift, hydrocephalus or herniation. There is a left parietal/posterior central gyrus and left frontal encephalomalacia. Baldwin-white matter differentiation is normal. Posterior cranial fossa contents demonstrated no acute intracranial hemorrhage or mass effect. Sellar/suprasellar region demonstrated no gross hemorrhage or masses. Craniocervical junction is intact. No air-fluid levels in the included paranasal sinuses. Tympanic cavities and mastoid air cells are aerated. CT/CT head/brain wo IV con IMPRESSION: No acute fracture, bony calvarium. No acute intracranial hemorrhage. Encephalomalacia, Left frontoparietal which could be source of the seizure. Consider MRI brain for further imaging evaluation.. Electronically signed by: Palmer Bach MD 01/07/2024 10:37 AM [facility]
--- NOTE | ~2024-01-07 | XR_ITS ---
EXAMINATION: XR CHEST CLINICAL INFORMATION: r/o infection COMPARISON: None available. TECHNIQUE: Frontal view of the chest was obtained. FINDINGS: No significant abnormality is noted involving the heart, lungs, mediastinum, bony thorax or soft tissues. XR/XR chest 1V IMPRESSION: Unremarkable examination. Electronically signed by: Enzo Jensen MD 01/07/2024 06:47 PM [facility]
[2024-01-07 08:06] LABS: MANUAL DIFF FLAG NO
[2024-01-07 08:08] LABS: Basophils Percent Auto 0.1 % (0-2); Hematocrit 38.2 % (37.0-47.0); Hemoglobin 13.3 g/dl (12.0-16.0); Imm Gran Abs Auto 0.05 X10*3/uL (0.00-0.03); Imm Gran Pct Auto 0.4 % (0.0-0.4); Lymphocytes Absolute Auto 1.7 X10*3/uL (1.2-4.9); Lymphocytes Percent Auto 12.6 % (20-40); Mean Corpuscular HGB Conc 34.8 g/dl (31.0-35.0); Mean Corpuscular Hemoglobin 30.9 pg (27.0-33.0); Mean Corpuscular Volume 88.8 fL (80.0-98.0); Mean Platelet Volume 9.1 fL (9.4-12.3); Monocytes Percent Auto 7.5 % (2-11); Neutrophils Absolute Auto 10.7 x10*3/uL (2.0-8.3); Neutrophils Percent Auto 79.4 % (45-73); Platelet Count 360 X10*3/uL (160-400); Red Cell Distribution Width 15.2 % (11.0-16.0); White Blood Count 13.5 X10*3/uL (4.8-10.8)
[2024-01-07 08:22] LABS: Anion Gap 18 (12-20); Blood Urea Nitrogen 7 mg/dL (9-16); Calcium 9.5 mg/dL (8.4-10.2); Carbon Dioxide 21 mmol/L (22-29); Chloride 102 mmol/L (96-108); Estimated Glomerular Filt Rate > 60; Glucose Random 101 mg/dL (60-115); Potassium 3.8 mmol/L (3.3-5.1); Sodium 137 mmol/L (135-145)
--- NOTE | 2024-01-07 08:33 | PC.NURSE ---
Pt presents to ED via triage from home, reports 2 seizures this morning around midnight then 2am. Describes them as paralysis of right side and shaking. Has hx of seizures, no seizure meds since sunday since she ran out and cannot get more. No falls, head hits or recent illnesses. Alert and oriented, breathing even and unlabored. Seizure precautions in place. NSR on bedside monitoring specialist. Reports headache 08/28.
--- NOTE | 2024-01-07 08:38 | ED_ITS ---
HPI - Seizure General Chief Complaint: Seizure Stated Complaint: had 2 seizure today Time Seen by Provider: 01/07/24 08:13 Source: patient Mode of arrival: ambulatory Limitations: no limitations History of Present Illness ED Provider: Dr. Francisco Cruz HPI Narrative: 33-year-old female with a history of celiac disease and seizures who presents emergency department for evaluation of 2 seizures last night and right-sided weakness. Last night, the patient was in bed when she had 2 pgcw-lq-knso seizures at 23:00 hours. She states that initially her whole body was vibrating. She states that she then heard Punk rock music and had a foul odor in her nose and mouth. She states that her face became rigid followed by her right arm and right leg becoming rigid. She then lost consciousness. She states she woke up and had a 2nd event similar to the 1st event. Patient states that she had a seizure 1 year prior but was not on medications for seizures. She states that on 11/20/2023 she had a similar event to above and was seen at [facility]. Patient was scheduled for an MRI on 01/12/2024 and then after that she was going to follow-up with a neurologist. She states she was given an antiseizure medicine for 1 month but ran out of this medicine proximally 1 week prior prior. She does not know the name of this antiseizure medication. Patient states that she continues to have a vibratory sense in the right side of her body has weakness of her right arm and right leg. Patient is currently complaining of a severe headache which she states is involving her whole head, the headache as a pounding sensation in his 11/28. The patient's prescription record she was prescribed Keppra 500 mg b.i.d. on 12/12/2023 Related Data Previous Rx's ?Medication ?Instructions ?Recorded ibuprofen 800 mg tablet 800 mg PO Q8H PRN pain #30 tabs 05/10/20 oxycodone 5 mg tablet 5 mg PO Q8H PRN pain 3 days #10 05/10/20 tabs ondansetron 4 mg disintegrating 4 mg PO Q8H PRN nausea and 06/22/21 tablet vomiting #10 tabs Allergies Allergy/AdvReac Type Severity Reaction Status Date / Time gluten [GLUTEN] Allergy Unknown STOMACH Verified 01/07/24 07:54 UPSET Review of Systems 2 Review of Systems: Yes all other systems are reviewed and are negative [facility] Past Medical History [facility] Narrative: Social history: She does smoke cigarettes. She states she drinks alcohol socially and last drank 1 week prior. She denies drug use. Medical History Celiac disease Social History Social History Alcohol intake: current Alcohol intake frequency: does not drink Smoked in Last 30 Days: Yes Use of substances other than those prescribed or required for medical reasons: No Substance Use Type: Marijuana Advance Directives: No Advance Directives Information Provided: No Do you have a plan to hurt others: No Plan Physical Exam 2 Vital Signs: Vital Signs: Last Vital Signs Temp 98.2 F 01/07/24 10:42 Pulse 74 01/07/24 10:42 Resp 16 01/07/24 10:42 BP 108/60 01/07/24 10:42 Pulse Ox 96 01/07/24 10:42 O2 Del Method Room Air 01/07/24 10:42 BMI result Body Mass Index 34.0 Vital signs were normal Exam: General: Awake, alert in no distress, patient does appear anxious Head: Normocephalic, atraumatic EENT: PERRL, Lids normal, sclera normal, conjunctiva normal, nose normal , ears normal, throat without erythema or exudates Neck: Supple, no adenopathy Lung: breath sounds symmetric, no wheezing, rales or rhonchi Chest: symmetric movement, nontender Heart: regular rate and rhythm, normal S1, S2 no murmurs or rubs Abdomen: soft, non-tender, nondistended, normal bowel sounds Back: no vertebral tenderness, no CVAT Extremities: no deformities, moves all extremities symmetrically Neuro: General: Awake, alert, oriented, normal speech Cranial nerves: Cranial nerves intact Strength: The patient does have weakness of her right arm and leg compared to the left, she was able to hold both upper and lower extremities up against gravity without difficulty. The patient does have an intentional tremor when moving both her right and left arms. Cerebellar: Good hziggm-mp-uakh-to-finger on the left, poor ggimyb-mr-yfli-to-finger on the right. Good rapid finger movement on the left with poor rapid finger movement on the right Reflexes: 2+ and symmetric Medications Administered Discontinued Medications Generic Name Dose Route Start Last Admin Trade Name Nadya PRN Reason Stop Dose Admin Diphenhydramine HCl 50 mg 01/07/24 08:42 01/07/24 09:13 Diphenhydramine Hcl 50 Mg/Ml Vial IVPUSH 01/07/24 08:43 50 mg ONCE STA Administration Ketorolac Tromethamine 15 mg 01/07/24 08:42 01/07/24 09:12 Ketorolac Tromethamine 15 Mg/Ml Vial IVPUSH 01/07/24 08:43 15 mg ONCE STA Administration Levetiracetam 500 mg 01/07/24 08:58 01/07/24 09:15 Levetiracetam 500 Mg Tablet PO 01/07/24 08:59 500 mg ONCE ONE Administration Metoclopramide HCl 10 mg 01/07/24 08:42 01/07/24 09:13 Metoclopramide Hcl 10 Mg/2 Ml Vial IVPUSH 01/07/24 08:43 10 mg ONCE STA Administration Medical Decision Making Medical Decision Making MDM Narrative: 33-year-old female with a history of celiac disease and seizures who presents emergency department for evaluation of 2 seizures last night and right-sided weakness. Patient was description of the seizure is consistent with an aura (hearing punk rock music and having a bad taste/odor in her nose) with a Jacksonian March starting in her face moving to her right arm and right leg and then loss of consciousness.She was also complaining of a severe, pounding headache which is 10/10. Patient had a seizure 1 year prior but was not taking medications. She had a seizure recently on 11/20/2023 and was seen at [facility] and started on Keppra 500 mg b.i.d. but she ran out of this medication 1 week prior to last night's events. Patient's physical examination revealed normal vital signs. She did appear to be anxious. She did have right upper and right lower extremity weakness compared to the left as well as poor kqwuzx-ua-bqbu-to-finger and rapid finger movement on the right compared to the left. She does have an intention tremor in both upper extremities. Differential diagnosis: ?Includes but is not limited to seizure, Hang's paralysis, stroke, intracranial bleed, electrolyte abnormalities Course: 12:55 Patient's laboratory evaluation was unremarkable. CT scan did reveal left parietal/posterior central gyrus and left frontal encephalomalacia. I did receive records from [facility] regarding the 11/21/2019 for admission. The patient had a negative EEG at that time. The patient's CT scan report from 11/21/2023 was as follows: ?no parenchymal hemorrhage, midline shift or mass effect. Baldwin/white matter differential as well preserved with no acute infarct. No white matter lesions. No subarachnoid hemorrhage. No subdural or epidural collections. Impression: No acute intracranial pathology I did discuss this discrepancy with our neurologist, Dr. Hammond and he recommended admitting the patient for stroke workup. I did order an MRI with and without gadolinium. I also discuss the patient's presentation with the admitting hospitalist, Dr. Moreno Patient's headache was treated with Toradol 15 mg IV, Reglan 10 mg IV and Benadryl 50 mg IV. Patient's pain went from 9/10 to 5/10. The patient's patient does appear to be anxious still and she was given Ativan 1 mg IV Admission/Observation Consideration of admission/observation: Escalation of care including admission/observation considered (Yes) Lab Data MDM Lab Attestation statement: I reviewed the patient's lab results. My independent interpretation patient's laboratory evaluation as follows: WBC elevated 13,500. Bicarb low 21. 01/07/24 08:03 01/07/24 08:03 Labs: Lab Results 01/07/24 Range/Units 08:03 WBC 13.5 H (4.8-10.8) X10*3/uL RBC 4.30 (4.20-5.50) X10*6/uL Hgb 13.3 (12.0-16.0) g/dl Hct 38.2 (37.0-47.0) % MCV 88.8 (80.0-98.0) fL MCH 30.9 (27.0-33.0) pg MCHC 34.8 (31.0-35.0) g/dl RDW 15.2 (11.0-16.0) % Plt Count 360 (160-400) X10*3/uL MPV 9.1 L (9.4-12.3) fL Immature Gran % (Auto) 0.4 (0.0-0.4) % Neut % (Auto) 79.4 H (45-73) % Lymph % (Auto) 12.6 L (20-40) % [place] % (Auto) 7.5 (2-11) % Eos % (Auto) 0.0 (0-4) % Baso % (Auto) 0.1 (0-2) % Lymph # (Auto) 1.7 (1.2-4.9) X10*3/uL [place] # (Auto) 1.0 (0.1-1.2) X10*3/uL Eos # (Auto) 0.0 (0.0-0.4) X10*3/uL Baso # (Auto) 0.0 (0.0-0.2) X10*3/uL Abs Immat Gran (auto) 0.05 H (0.00-0.03) X10*3/uL Absolute Neuts (auto) 10.7 H (2.0-8.3) x10*3/uL Absolute Nucleated RBC 0.000 (0.0-0.012) X10*3/uL Nucleated RBC % (auto) 0.0 (0.0-0.2) /100WBC Sodium 137 (135-145) mmol/L Potassium 3.8 (3.3-5.1) mmol/L Chloride 102 (96-108) mmol/L Carbon Dioxide 21 L (22-29) mmol/L Anion Gap 18 (12-20) BUN 7 L (9-16) mg/dL Creatinine 0.89 (0.5-1.4) mg/dL Estim Creat Clear Calc 87.0 Estimated GFR > 60 Random Glucose 101 (60-115) mg/dL Calcium 9.5 (8.4-10.2) mg/dL Magnesium 2.2 (1.6-2.6) mg/dL Total Bilirubin 0.8 (0.0-1.0) mg/dL Direct Bilirubin 0.2 (0.0-0.5) mg/dL AST 31 (5-31) U/L ALT 15 (0-31) U/L Alkaline Phosphatase 83 (39-117) U/L Total Protein 8.0 (6.5-8.0) g/dL Albumin 4.4 (3.5-5.0) g/dL Radiology Impression Discussion of test interpretation with radiology: I have reviewed the radiologist's reading. Radiologist Impression: CT head/brain wo IV con IMPRESSION: No acute fracture, bony calvarium. No acute intracranial hemorrhage. Encephalomalacia, Left frontoparietal which could be source of the seizure. Consider MRI brain for further imaging evaluation.. Electronically signed by: Palmer Bach MD Critical Care Time Critical Care Time Critical Care Time: Yes Total Critical Care Time: 45 Attestation: Critical Care: The patient was critically ill with a high probability of imminent or life threatening deterioration. I spent greater than 30 minutes of discontinuous time evaluating the patient,delivering critical care at the bedside, discussing and evaluating pertinent data with consultants. Critical care time does not include time spent performing separately billable procedures or teaching. Total time spent performing critical care was 45 minutes. Discharge Plan Discharge Clinical Impression: Seizure, Right sided weakness, Abnormal brain CT Prescriptions: No Action oxycodone 5 mg tablet 5 mg PO Q8H PRN (Reason: pain) 3 Days Qty: 10 0RF ibuprofen 800 mg tablet 800 mg PO Q8H PRN (Reason: pain) Qty: 30 0RF ondansetron 4 mg tablet,disintegrating 4 mg PO Q8H PRN (Reason: nausea and vomiting) Qty: 10 0RF Print Language: Sinhala
[2024-01-07] MEDS: Ketorolac Tromethamine 15 MG/ML VIAL IVPUSH (09:12)
[2024-01-07] MEDS: Metoclopramide HCl 10 MG/2 ML VIAL IVPUSH (09:13)
[2024-01-07] MEDS: diphenhydrAMINE HCL 50 MG/ML VIAL IVPUSH (09:13)
[2024-01-07] MEDS: levETIRAcetam 500 MG TABLET PO ×2 (09:15→21:04)
[2024-01-07 09:17] LABS: Magnesium 2.2 mg/dL (1.6-2.6)
[2024-01-07 09:20] LABS: Alanine Aminotransferase 15 U/L (0-31); Albumin Level 4.4 g/dL (3.5-5.0); Alkaline Phosphatase 83 U/L (39-117); Aspartate Amino Transferase 31 U/L (5-31); Bilirubin Direct 0.2 mg/dL (0.0-0.5); Bilirubin Total 0.8 mg/dL (0.0-1.0)
[2024-01-07] MEDS: LORazepam 2 MG/ML VIAL 1 MG IVPUSH (13:36)
[2024-01-07 13:58] LABS: Amphetamine Screen Urine Not Detected (Not Detect); Barbiturates, Urine Not Detected (Not Detect); Benzodiazepines Screen Urine Not Detected (Not Detect); Buprenorphine Scr Not Detected (Not Detect); Cannabinoid Screen Urine POSITIVE (Not Detect); Cocaine Screen Urine Not Detected (Not Detect); Fentanyl, urine Not Detected (Not Detect); Methadone Screen, Urine Not Detected (Not Detect); Opiate Screen Urine Not Detected (Not Detect); Oxycodone Screen Urine Not Detected (Not Detect); Phencyclidine Screen Urine Not Detected (Not Detect)
--- NOTE | 2024-01-07 14:29 | PHA.MEDREC ---
Pharmacy Consult ? Medication Reconciliation Pharmacy has completed the medication reconciliation.
--- NOTE | 2024-01-07 14:29 | PHA.MEDREC ---
Addendum entered by Rosie Ge RPh 01/07/24 14:41: Reviewed by [facility]. Pt has not taken Keppra in over a month. Original Note: Pharmacy Consult ? Medication Reconciliation Pharmacy has completed the medication reconciliation. Spoke to patient to confirm med list. Patient states she is not taking any home med. Patent states she should be taking Levetiracetam 500 mg BID , however she ran out of refills.
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
[2024-01-07] MEDS: 0.9 % Sodium Chloride Flush 3 ML SYRINGE IVFLUSH ×2 (16:25→23:18)
[2024-01-07] MEDS: Acetaminophen 325 MG TABLET 650 MG PO (21:05)
--- NOTE | 2024-01-08 | EEG_ITS ---
FINDINGS: The waking background activity consists of low-voltage fast frequencies seen anteriorly, intermixed posteriorly with poorly regulated 8 to 9 hertz moderate voltage alpha. From the record, almost continue sharp transients in the theta range are seen in a bitemporal distribution with phase reversal at T5-T6. Drowsiness is characterized by diffuse theta slowing. Light sleep stages are entered briefly. Hyperventilation was omitted. IMPRESSION: This is an abnormal EEG due to almost continuous sharp discharges seen in bitemporal distribution from the right and left mid temporal regions that would be consistent with seizure disorder. MD LAXMI Turner/BEE / [id number]
[2024-01-08 03:53] VITALS: BP 101/64; PULSE 60; RESP 19; O2SAT 91
[2024-01-08 07:38] LABS: Appearance Urine Clear; Color Urine Yellow; Glucose Urine UA Negative (Negative); Leukocyte Esterase Urine Trace (Negative); Nitrite Urine Negative (Negative); PH 6.5 (5.0-9.0); UMIC TRIGGER UACC YES; Urine Blood Small (1+) (Negative); Urine Ketones 15 mg/dL (Negative); Urine Protein Negative (Neg-Trace)
[2024-01-08 07:44] VITALS: BP 113/67; PULSE 56; RESP 18; TEMP 36.3; O2SAT 97
[2024-01-08 07:52] LABS: Hematocrit 38.9 % (37.0-47.0); Hemoglobin 13.1 g/dl (12.0-16.0); Mean Corpuscular HGB Conc 33.7 g/dl (31.0-35.0); Mean Corpuscular Hemoglobin 30.5 pg (27.0-33.0); Mean Corpuscular Volume 90.5 fL (80.0-98.0); Mean Platelet Volume 9.3 fL (9.4-12.3); Platelet Count 322 X10*3/uL (160-400); White Blood Count 7.2 X10*3/uL (4.8-10.8)
[2024-01-08 08:07] LABS: Bacteria Urine 4+ (None Seen); Hyaline Casts Urine 0-2 /LPF (0-2); RBC Urine 0-2 /HPF (0-2); WBC Urine 0-5 /HPF (0-5)
[2024-01-08 08:09] LABS: Anion Gap 15 (12-20); Blood Urea Nitrogen 10 mg/dL (9-16); Calcium 9.1 mg/dL (8.4-10.2); Carbon Dioxide 24 mmol/L (22-29); Chloride 101 mmol/L (96-108); Creatinine Clr Calc Pharmacy 87.6; Estimated Glomerular Filt Rate > 60; Glucose Random 85 mg/dL (60-115); Magnesium 2.2 mg/dL (1.6-2.6); Potassium 3.6 mmol/L (3.3-5.1); Sodium 136 mmol/L (135-145)
[2024-01-08 08:23] LABS: Thyroid Stimulating Hormone 3.51 uIU/mL (0.32-4.0)
[2024-01-08] MEDS: levETIRAcetam 500 MG TABLET PO (09:40)
[2024-01-08] MEDS: Acetaminophen 325 MG TABLET 650 MG PO (09:41)
--- NOTE | 2024-01-08 09:48 | P.PNIM_ITS ---
Subjective Subjective Date of Service: 01/08/24 Interval History: Follow-up seizure Feeling better No seizure activity Review of Systems Review of Systems: Yes all other systems are reviewed and are negative Constitutional Constitutional: Reports headache(s) ENT Ears, Nose, Mouth, and Throat: Reports headache(s) Neurologic Neurologic: Reports system reviewed and no additional complaints, except as documented, Reports Abnormal speech present and Reports headache(s) headache has markedly improved, is still present but very light Physical Exam 2 Vital Signs: Vital Signs: Last Vital Signs Temp 97.3 F 01/08/24 07:44 Pulse 56 01/08/24 07:44 Resp 18 01/08/24 07:44 BP 113/67 01/08/24 07:44 Pulse Ox 97 01/08/24 07:44 O2 Del Method Room Air 01/08/24 07:44 BMI result Body Mass Index 36.6 Appearing in no acute distress lung sounds are clear to auscultation heart regular rate rhythm, clear S1, S2 positive bowel sounds, abdomen is soft, nontender neuro patient is alert x3, no focal deficits Const: Orientation/consciousness: patient oriented x3 HEENT: Head: Yes normal to inspection Eyes: General: appearance normal, both eyes and all related structures P upils: Equal, round and reactive pupils present EOM: EOMs intact bilaterally Direct Ophthalmoscopy: normal light reflex Neuro: General: patient oriented x3, moves all extremities, Normal light touch and pain sensation and CN's II-XI intact bilaterally Cranial nerves: Yes Equal, round and reactive pupils present Cognition (Neuro): normal cognition Speech: Abnormal speech present Motor exam (neuro): 5/5 motor strength present throughout Objective Data Active Medications Acetaminophen (Acetaminophen 325 Mg Tablet) 650 mg PO Q6H PRN PRN Reason: Pain, Mild (Pain Scale 1-3), fever or headache Last Admin: 01/08/24 09:41 Dose: 650 mg Documented By: DAYAMI Calcium Carbonate (Calcium Carbonate 750 Mg Tab.Chew) 750 mg PO Q4H PRN PRN Reason: Heartburn Levetiracetam (Levetiracetam 500 Mg Tablet) 500 mg PO BID ERENDIRA Last Admin: 01/08/24 09:40 Dose: 500 mg Documented By: DAYAMI Magnesium Hydroxide (Milk Of Magnesia 30 Ml Oral.Susp) 30 ml PO DAILY PRN PRN Reason: Constipation Melatonin (Melatonin 3 Mg Tablet) 6 mg PO BEDTIME PRN PRN Reason: Insomnia Sodium Chloride (0.9 % Sodium Chloride Flush 3 Ml Syringe) 3 ml IVFLUSH QSHIFT [facility] Last Admin: 01/07/24 23:18 Dose: 3 ml Documented By: LORRAINE Labs 01/08/24 07:22 01/08/24 07:22 Labs: Laboratory Results - last 24 hr 01/07/24 01/07/24 01/08/24 08:03 13:40 06:41 MCV MCH MCHC RDW Plt Count MPV Absolute Nucleated RBC Nucleated RBC % (auto) Anion Gap Estim Creat Clear Calc Estimated GFR Random Glucose Calcium Magnesium Total Creatine Kinase 244 H TSH Urine Color Yellow Urine Appearance Clear Urine pH 6.5 Ur Specific [place] 1.020 Urine Protein Negative Urine Glucose (UA) Negative Urine Ketones 15 Urine Blood Small (1+) H Urine Nitrite Negative Ur Leukocyte Esterase Trace H Urine RBC 0-2 Urine WBC 0-5 Ur Squamous Epith Cells 6-10 Urine Bacteria 4+ Hyaline Casts 0-2 Urine Opiates Screen Not Detected Ur Buprenorphine Scrn Not Detected Ur Oxycodone Screen Not Detected Urine Methadone Screen Not Detected Urine Fentanyl Screen Not Detected Ur Barbiturates Screen Not Detected Ur Phencyclidine Scrn Not Detected Ur Amphetamines Screen Not Detected U Benzodiazepines Scrn Not Detected Urine Cocaine Screen Not Detected U Marijuana (THC) Screen POSITIVE H 01/08/24 07:22 MCV 90.5 MCH 30.5 MCHC 33.7 RDW 15.0 Plt Count 322 MPV 9.3 L Absolute Nucleated RBC 0.000 Nucleated RBC % (auto) 0.0 Anion Gap 15 Estim Creat Clear Calc 87.6 Estimated GFR > 60 Random Glucose 85 Calcium 9.1 Magnesium 2.2 Total Creatine Kinase TSH 3.51 Urine Color Urine Appearance Urine pH Ur Specific [place] Urine Protein Urine Glucose (UA) Urine Ketones Urine Blood Urine Nitrite Ur Leukocyte Esterase Urine RBC Urine WBC Ur Squamous Epith Cells Urine Bacteria Hyaline Casts Urine Opiates Screen Ur Buprenorphine Scrn Ur Oxycodone Screen Urine Methadone Screen Urine Fentanyl Screen Ur Barbiturates Screen Ur Phencyclidine Scrn Ur Amphetamines Screen U Benzodiazepines Scrn Urine Cocaine Screen U Marijuana (THC) Screen Assessment and Plan (1) Seizure: Status: Acute Plan 33 year old women admitted with presumed seizure Seizure Recently diagnosed with seizure disorder in November 2023 at [facility] Started on Keppra but reports that she ran out and has not been on it 1 x week MRI showing no acute brain abnormality, encephalomalacia resulting in minimal gliosis to left frontoparietal, prior vascular insult should be considered Started Keppra 500 mg b.i.d. UA and chest x-ray negative for infection Neurology consultation pending EEG planned for this afternoon Seizure precautions in place Leukocytosis resolved Anxiety Not managed on any medications at home ADHD Not managed on any medications at home Marijuana use Discussed importance of smoking cessation DVT prophylaxis with early ambulation Attending Dr. Thornton Full code Quality Stroke Does the patient have a stroke diagnosis?: No VTE Prior VTE?: No VTE Risk Level:: Medical - moderate - high VTE Device Contraindication: Treatment Not Indicated VTE Drug Contraindication: Treatment Not Indicated
--- NOTE | 2024-01-08 11:09 | MHC.CM.PN ---
Pt lives with her children, she is independent, no home health services, no DME. She does not have a PCP, brochure given and discussed for her to call to a new pt appt. She can arrange transport home at [place]. DCP: home, self care. CM to follow and assist with DC plan.
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
[2024-01-08 11:47] VITALS: BP 131/69; PULSE 79; RESP 16; TEMP 36.8; O2SAT 97
[2024-01-08] MEDS: ondansetron HCL 4 MG/2 ML VIAL IVPUSH (11:58)
[2024-01-08 15:27] VITALS: BP 116/71; PULSE 64; RESP 18; TEMP 36.6; O2SAT 98
[2024-01-08] MEDS: 0.9 % Sodium Chloride Flush 3 ML SYRINGE IVFLUSH (17:08)
[2024-01-08 20:00] VITALS: BP 119/67; PULSE 75; RESP 16; TEMP 36.7; O2SAT 99
[2024-01-08] MEDS: clonazePAM 0.5 MG TABLET PO (21:52)
[2024-01-08] MEDS: levETIRAcetam 1,000 MG TABLET 1000 MG PO (21:52)
[2024-01-09] VITALS: BP 104/54; PULSE 80; RESP 18; TEMP 36.8; O2SAT 97
[2024-01-09 03:26] VITALS: BP 110/75; PULSE 62; RESP 16; TEMP 36.1; O2SAT 97
[2024-01-09] MEDS: LORazepam 1 MG TABLET PO (06:32)
[2024-01-09 08:00] VITALS: BP 122/70; PULSE 75; RESP 14; TEMP 36.7; O2SAT 97
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
[2024-01-09] MEDS: 0.9 % Sodium Chloride Flush 3 ML SYRINGE IVFLUSH ×2 (09:00)
[2024-01-09] MEDS: levETIRAcetam 1,000 MG TABLET 1000 MG PO (09:00)
--- NOTE | 2024-01-09 09:42 | MHC.CM.PN ---
Pt has been medically cleared for DC, she will go home via private transport, plan is: home, self care.
== END 2024-01-09 11:49 | disposition home or self-care (01) | DRG 53 ==
LOC: HO.ED 13:21 → HO.EDOVER 15:50 → HO.IMC 16:21
PROVIDERS: Admitting Provider Nurse Practitioner Acute Care; Emergency Provider Emergency Medicine Emergency Medical Services; Visit Provider Nurse Practitioner Acute Care
DX: G40.909 Epilepsy, unspecified, not intractable, without status epilepticus (principal); G93.89 Other specified disorders of brain; F12.90 Cannabis use, unspecified, uncomplicated; F17.210 Nicotine dependence, cigarettes, uncomplicated; T42.6X6A Underdosing of other antiepileptic and sedative-hypnotic drugs, initial encounter; F41.9 Anxiety disorder, unspecified; F90.9 Attention-deficit hyperactivity disorder, unspecified type; K90.0 Celiac disease; Z71.6 Tobacco abuse counseling; Z86.73 Personal history of transient ischemic attack (TIA), and cerebral infarction without residual deficits; Z79.899 Other long term (current) drug therapy
CPT/HCPCS: 36415; 70450; 70551; 71045; 80048; 80076; 80307; 81001; 82550; 83735; 84443; 85025; 85027; 93005; 95816; 99285; J1200; J1885; J2060; J2405; J2765

== ENCOUNTER → 2024-01-07 08:51 | Outpatient (BNV) | payer OTHER, SELFPAY | PROVIDERS: Emergency Provider Emergency Medicine Emergency Medical Services; Visit Provider Radiology Diagnostic Radiology | DX: G93.89 Other specified disorders of brain (principal) | CPT/HCPCS: 70450; 70551 ==

== ENCOUNTER 2024-01-07 15:27 | Outpatient (BNV) | payer OTHER, SELFPAY | END 2024-01-07 16:21 | PROVIDERS: Admitting Provider Nurse Practitioner Acute Care; Emergency Provider Emergency Medicine Emergency Medical Services; Visit Provider Internal Medicine Cardiovascular Disease | DX: I49.9 Cardiac arrhythmia, unspecified (principal) | CPT/HCPCS: 93010 ==

== ENCOUNTER → 2024-01-07 15:27 | Outpatient (BNV) | payer OTHER, SELFPAY | PROVIDERS: Admitting Provider Nurse Practitioner Acute Care; Emergency Provider Emergency Medicine Emergency Medical Services; Visit Provider Nurse Practitioner Acute Care | DX: R56.9 Unspecified convulsions (principal) | CPT/HCPCS: 99223; 99232; 99239 ==

== ENCOUNTER → 2024-01-07 15:27 | Outpatient (BNV) | payer OTHER, SELFPAY | PROVIDERS: Admitting Provider Nurse Practitioner Acute Care; Emergency Provider Emergency Medicine Emergency Medical Services; Visit Provider Psychiatry & Neurology Neurology | DX: I69.351 Hemiplegia and hemiparesis following cerebral infarction affecting right dominant side (principal); R56.9 Unspecified convulsions | CPT/HCPCS: 99222 ==

== ENCOUNTER 2024-02-03 11:04 | Emergency (ER) | payer OTHER, SELFPAY ==
[2024-02-03 11:06] VITALS: BP 131/83; PULSE 96; RESP 18; TEMP 36.3; O2SAT 97; BMI 34.4
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
[2024-02-03 11:46] LABS: MANUAL DIFF FLAG NO
[2024-02-03 11:53] LABS: Basophils Percent Auto 0.5 % (0-2); Eosinophils Absolute Auto 0.1 X10*3/uL (0.0-0.4); Hematocrit 36.1 % (37.0-47.0); Hemoglobin 12.4 g/dl (12.0-16.0); Imm Gran Abs Auto 0.03 X10*3/uL (0.00-0.03); Imm Gran Pct Auto 0.4 % (0.0-0.4); Lymphocytes Absolute Auto 1.8 X10*3/uL (1.2-4.9); Lymphocytes Percent Auto 24.8 % (20-40); Mean Corpuscular HGB Conc 34.3 g/dl (31.0-35.0); Mean Corpuscular Hemoglobin 31.2 pg (27.0-33.0); Mean Corpuscular Volume 90.7 fL (80.0-98.0); Mean Platelet Volume 8.9 fL (9.4-12.3); Monocytes Absolute Auto 0.6 X10*3/uL (0.1-1.2); Monocytes Percent Auto 7.9 % (2-11); Neutrophils Absolute Auto 4.8 x10*3/uL (2.0-8.3); Neutrophils Percent Auto 65.4 % (45-73); Platelet Count 333 X10*3/uL (160-400); Red Blood Count 3.98 X10*6/uL (4.20-5.50); Red Cell Distribution Width 15.5 % (11.0-16.0); White Blood Count 7.3 X10*3/uL (4.8-10.8)
[2024-02-03 12:02] LABS: Alanine Aminotransferase 20 U/L (0-31); Albumin Level 4.2 g/dL (3.5-5.0); Alkaline Phosphatase 79 U/L (39-117); Anion Gap 13 (12-20); Aspartate Amino Transferase 33 U/L (5-31); Bilirubin Total 0.4 mg/dL (0.0-1.0); Blood Urea Nitrogen 8 mg/dL (9-16); Carbon Dioxide 26 mmol/L (22-29); Chloride 106 mmol/L (96-108); Creatinine Clr Calc Pharmacy 91.7; Estimated Glomerular Filt Rate > 60; Glucose Random 88 mg/dL (60-115); Potassium 3.8 mmol/L (3.3-5.1); Sodium 141 mmol/L (135-145); Total Protein 7.6 g/dL (6.5-8.0)
[2024-02-03] MEDS: LORazepam 2 MG/ML VIAL IVPUSH (12:17)
[2024-02-03 12:25] LABS: Influenza A PCR NEGATIVE (Negative); Influenza B PCR NEGATIVE (Negative); Resp Syncy Virus RNA Qual PCR NEGATIVE (Negative); SARS COV2 PCR INHOUSE NEGATIVE (Negative)
[2024-02-03 12:57] VITALS: BP 112/55; PULSE 86; RESP 16; TEMP 37.2; O2SAT 96
--- NOTE | 2024-02-03 13:01 | PC.NURSE ---
Patient came from home and admitted via triage for seizures. Patient had a seizure that started around 9/10am this morning with body shaking in arms and legs lasting 30-45 secs x4, patient states remembering 2 of them. Patient missed dose of Kepra on Wednesday 01/31 and had some alcoholic drinks on sunday, did take dose of Kepra today. Alert and oriented. 20g IV started right AC. Seizure precautions in place. Lorazepam given as ordered. VSS. Patient aware we need urine culture and to call when she needs to use bathroom.
[2024-02-03 14:39] VITALS: BP 93/52; PULSE 78; RESP 18; O2SAT 96
--- NOTE | 2024-02-03 15:03 | PC.NURSE ---
Patient c/o of heel/skin pain, MD aware.
[2024-02-03 15:42] VITALS: BP 115/77; PULSE 67; RESP 16; O2SAT 96
[2024-02-03 15:47] LABS: Appearance Urine Clear; Color Urine Yellow; Glucose Urine UA Negative (Negative); Leukocyte Esterase Urine Small (1+) (Negative); Nitrite Urine Negative (Negative); PH 6.5 (5.0-9.0); UMIC TRIGGER UACC YES; Urine Blood Small (1+) (Negative); Urine Ketones Trace mg/dL (Negative); Urine Pregnancy NEGATIVE (NEGATIVE); Urine Protein Negative (Neg-Trace)
[2024-02-03 15:48] LABS: UPreg QC Valid YES
[2024-02-03 16:01] LABS: Bacteria Urine 2+ (None Seen); Hyaline Casts Urine 0-2 /LPF (0-2); UACC Culture Trigger YES
[2024-02-03 16:11] VITALS: BP 115/77; PULSE 67; RESP 18; TEMP 36.8; O2SAT 97
--- NOTE | 2024-02-03 16:14 | PC.NURSE ---
Patient adamant that she does not want to be admitted, educated that she should not be driving d/t recent seizures. Patient verbalized understanding stating that her mom is picking her up
[2024-02-06 11:37] LABS: Levetiracetam Keppra 46.8 mcg/mL (6.0-46.0)
== END 2024-02-03 16:13 | disposition home or self-care (01) ==
PROVIDERS: Nurse Practitioner Family; Emergency Provider Emergency Medicine
DX: R56.9 Unspecified convulsions (principal); F17.210 Nicotine dependence, cigarettes, uncomplicated; Z03.818 Encounter for observation for suspected exposure to other biological agents ruled out; Z79.899 Other long term (current) drug therapy
CPT/HCPCS: 0241U; 36415; 80053; 80177; 81001; 81025; 85025; 87086; 87147; 96374; 99284; J2060

== ENCOUNTER 2024-02-06 10:20 | Emergency (ER) | payer OTHER, SELFPAY ==
[2024-02-06 10:29] VITALS: BP 121/84; BP 130/82; PULSE 76; PULSE 80; RESP 22; TEMP 36.8; O2SAT 100; BMI 34.0
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
[2024-02-06] MEDS: levETIRAcetam in NaCl (iso-os) 500 MG/100 ML PIGGYBACK 400 MG IV (10:39)
[2024-02-06] MEDS: clonazePAM 0.5 MG TABLET PO (10:42)
[2024-02-06 11:21] LABS: MANUAL DIFF FLAG NO
[2024-02-06 11:22] LABS: Basophils Percent Auto 0.3 % (0-2); Eosinophils Absolute Auto 0.1 X10*3/uL (0.0-0.4); Eosinophils Percent Auto 0.8 % (0-4); Hematocrit 34.3 % (37.0-47.0); Imm Gran Abs Auto 0.04 X10*3/uL (0.00-0.03); Imm Gran Pct Auto 0.5 % (0.0-0.4); Lymphocytes Absolute Auto 1.6 X10*3/uL (1.2-4.9); Lymphocytes Percent Auto 20.2 % (20-40); Mean Corpuscular Hemoglobin 31.5 pg (27.0-33.0); Monocytes Absolute Auto 0.6 X10*3/uL (0.1-1.2); Monocytes Percent Auto 7.2 % (2-11); Neutrophils Absolute Auto 5.5 x10*3/uL (2.0-8.3); Platelet Count 282 X10*3/uL (160-400); Red Blood Count 3.81 X10*6/uL (4.20-5.50); Red Cell Distribution Width 15.1 % (11.0-16.0); White Blood Count 7.7 X10*3/uL (4.8-10.8)
[2024-02-06 11:41] LABS: Alanine Aminotransferase 18 U/L (0-31); Albumin Level 3.8 g/dL (3.5-5.0); Alkaline Phosphatase 67 U/L (39-117); Anion Gap 7 (12-20); Aspartate Amino Transferase 24 U/L (5-31); Bilirubin Total 0.6 mg/dL (0.0-1.0); Blood Urea Nitrogen 8 mg/dL (9-16); Calcium 8.3 mg/dL (8.4-10.2); Carbon Dioxide 29 mmol/L (22-29); Chloride 107 mmol/L (96-108); Creatinine Clr Calc Pharmacy 107.6; Estimated Glomerular Filt Rate > 60; Glucose Random 92 mg/dL (60-115); Magnesium 1.8 mg/dL (1.6-2.6); Potassium 3.5 mmol/L (3.3-5.1); Sodium 139 mmol/L (135-145); Total Protein 6.9 g/dL (6.5-8.0)
[2024-02-06 11:45] LABS: HCG Quantitative < 2 mIU/mL
[2024-02-06 12:35] VITALS: BP 96/63; PULSE 76; RESP 17; TEMP 36.2; O2SAT 97
[2024-02-06 15:16] VITALS: BP 96/63; PULSE 76; RESP 17; TEMP 36.2; O2SAT 97
== END 2024-02-06 15:16 | disposition home or self-care (01) ==
PROVIDERS: Emergency Provider Emergency Medicine
DX: G40.909 Epilepsy, unspecified, not intractable, without status epilepticus (principal); F17.210 Nicotine dependence, cigarettes, uncomplicated; Z79.899 Other long term (current) drug therapy
CPT/HCPCS: 36415; 80053; 80177; 83735; 84702; 85025; 96365; 99284; J1953

== ENCOUNTER 2024-02-22 07:05 | Emergency (ER) | payer OTHER, SELFPAY ==
[2024-02-22 07:12] VITALS: BP 138/72; PULSE 110; RESP 20; O2SAT 99; BMI 35.1
[2024-02-22] MEDS: diphenhydrAMINE HCL 50 MG/ML VIAL 25 MG IVPUSH (07:24)
[2024-02-22] MEDS: Metoclopramide HCl 10 MG/2 ML VIAL IVPUSH (07:24)
[2024-02-22 07:37] LABS: MANUAL DIFF FLAG NO
[2024-02-22] MEDS: levETIRAcetam in NaCl (iso-os) 1,500 MG/100 ML PIGGYBACK 400 MG IV (07:39)
[2024-02-22 07:43] VITALS: BP 131/85; PULSE 86; RESP 20; TEMP 36.5; O2SAT 97
[2024-02-22 07:46] LABS: Basophils Percent Auto 0.4 % (0-2); Eosinophils Percent Auto 0.4 % (0-4); Hematocrit 39.7 % (37.0-47.0); Hemoglobin 13.4 g/dl (12.0-16.0); Imm Gran Abs Auto 0.04 X10*3/uL (0.00-0.03); Imm Gran Pct Auto 0.4 % (0.0-0.4); Lymphocytes Absolute Auto 2.5 X10*3/uL (1.2-4.9); Lymphocytes Percent Auto 23.6 % (20-40); Mean Corpuscular HGB Conc 33.8 g/dl (31.0-35.0); Mean Corpuscular Hemoglobin 30.6 pg (27.0-33.0); Mean Corpuscular Volume 90.6 fL (80.0-98.0); Mean Platelet Volume 9.3 fL (9.4-12.3); Monocytes Absolute Auto 0.6 X10*3/uL (0.1-1.2); Monocytes Percent Auto 5.9 % (2-11); Neutrophils Absolute Auto 7.2 x10*3/uL (2.0-8.3); Neutrophils Percent Auto 69.3 % (45-73); Platelet Count 346 X10*3/uL (160-400); Red Blood Count 4.38 X10*6/uL (4.20-5.50); Red Cell Distribution Width 14.9 % (11.0-16.0); White Blood Count 10.4 X10*3/uL (4.8-10.8)
[2024-02-22 07:59] LABS: Alanine Aminotransferase 30 U/L (0-31); Albumin Level 4.2 g/dL (3.5-5.0); Alkaline Phosphatase 81 U/L (39-117); Anion Gap 19 (12-20); Aspartate Amino Transferase 35 U/L (5-31); Bilirubin Direct 0.1 mg/dL (0.0-0.5); Bilirubin Total 0.3 mg/dL (0.0-1.0); Blood Urea Nitrogen 8 mg/dL (9-16); Calcium 8.8 mg/dL (8.4-10.2); Carbon Dioxide 14 mmol/L (22-29); Chloride 111 mmol/L (96-108); Creatinine Clr Calc Pharmacy 93.8; Estimated Glomerular Filt Rate > 60; Glucose Random 83 mg/dL (60-115); Lipase 17 U/L (8-78); Magnesium 1.9 mg/dL (1.6-2.6); Potassium 3.8 mmol/L (3.3-5.1); Sodium 140 mmol/L (135-145); Total Protein 7.8 g/dL (6.5-8.0)
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
[2024-02-22 08:01] VITALS: PULSE 92; RESP 18; O2SAT 95
[2024-02-22 08:02] LABS: HCG Quantitative < 2 mIU/mL
[2024-02-22] MEDS: Lactated Ringers 1,000 ML 999 ML IV ×2 (08:06)
[2024-02-22 08:16] LABS: Influenza A PCR NEGATIVE (Negative); Influenza B PCR NEGATIVE (Negative); Resp Syncy Virus RNA Qual PCR NEGATIVE (Negative); SARS COV2 PCR INHOUSE POSITIVE (Negative)
[2024-02-22 10:25] VITALS: BP 112/58; PULSE 78; RESP 14; TEMP 36.2; O2SAT 96
[2024-02-22 12:06] LABS: Blood Urea Nitrogen 7 mg/dL (9-16); Calcium 8.4 mg/dL (8.4-10.2); Creatinine Clr Calc Pharmacy 105.1; Estimated Glomerular Filt Rate > 60; Glucose Random 83 mg/dL (60-115)
[2024-02-22 12:20] LABS: Anion Gap 12 (12-20); Carbon Dioxide 23 mmol/L (22-29); Chloride 109 mmol/L (96-108); Potassium 4.2 mmol/L (3.3-5.1); Sodium 140 mmol/L (135-145)
[2024-02-22 12:52] VITALS: BP 121/76; PULSE 70; RESP 14; TEMP 36.2; O2SAT 99
== END 2024-02-22 12:53 | disposition home or self-care (01) ==
PROVIDERS: Emergency Provider Emergency Medicine; PCP Internal Medicine
DX: U07.1 COVID-19 (principal); R11.2 Nausea with vomiting, unspecified
CPT/HCPCS: 0241U; 36415; 80048; 80076; 83690; 83735; 84702; 85025; 96361; 96365; 96375; 99284; 99285; J1200; J1953; J2765; J7120

== ENCOUNTER 2025-01-19 17:02 | Emergency (ER) | payer OTHER, SELFPAY ==
[2025-01-19 17:09] VITALS: BP 134/78; PULSE 79; RESP 18; TEMP 36.6; O2SAT 98; BMI 32.1
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
--- NOTE | 2025-01-19 17:16 | ECG_ITS ---
Test Reason : SEIZURES Blood Pressure : */* mmHG Vent. Rate : 66 BPM Atrial Rate : 66 BPM P-R Int : 110 ms QRS Dur : 76 ms QT Int : 376 ms P-R-T Axes : 29 51 39 degrees QTcB Int : 394 ms Sinus rhythm with sinus arrhythmia with short OK Otherwise normal ECG When compared with ECG of 07-Jan-2024 16:21, OK interval has decreased Referred By: Norma Kidd Electronically Signed By: SADA MOHAN
[2025-01-19 17:44] LABS: MANUAL DIFF FLAG NO
[2025-01-19 17:52] LABS: Hematocrit 38.9 % (37.0-47.0); Hemoglobin 13.1 g/dl (12.0-16.0); Imm Gran Abs Auto 0.03 X10*3/uL (0.00-0.03); Imm Gran Pct Auto 0.3 % (0.0-0.4); Lymphocytes Absolute Auto 2.5 X10*3/uL (1.2-4.9); Mean Corpuscular HGB Conc 33.7 g/dl (31.0-35.0); Mean Corpuscular Hemoglobin 31.5 pg (27.0-33.0); Mean Corpuscular Volume 93.5 fL (80.0-98.0); NRBC Abs Auto 0.000 X10*3/uL (0.0-0.012); NRBC Pct Auto 0.0 /100WBC (0.0-0.2); Platelet Count 275 X10*3/uL (160-400); Red Blood Count 4.16 X10*6/uL (4.20-5.50); White Blood Count 11.8 X10*3/uL (4.8-10.8)
[2025-01-19 18:08] LABS: Alanine Aminotransferase 14 U/L (0-31); Albumin Level 4.3 g/dL (3.5-5.0); Alkaline Phosphatase 74 U/L (39-117); Anion Gap 12 (12-20); Aspartate Amino Transferase 24 U/L (5-31); Blood Urea Nitrogen 12 mg/dL (9-16); Calcium 8.7 mg/dL (8.4-10.2); Carbon Dioxide 24 mmol/L (22-29); Chloride 107 mmol/L (96-108); Creatinine Clr Calc Pharmacy 82.7; Estimated Glomerular Filt Rate > 60; Magnesium 2.0 mg/dL (1.6-2.6); Potassium 4.0 mmol/L (3.3-5.1); Sodium 139 mmol/L (135-145); Total Protein 7.3 g/dL (6.5-8.0)
[2025-01-19 18:23] LABS: Resp Syncy Virus RNA Qual PCR NEGATIVE (Negative); SARS COV2 PCR INHOUSE NEGATIVE (Negative)
--- NOTE | 2025-01-20 00:58 | PC.NURSE ---
no answer @[email or web address] [id number]
--- OUTSIDE RECORDS SUMMARY | 2025-01-20 01:11 | XMS_ITS | Clinical Summary ---
Author Organization [employer] [facility] Address [address] [place] [address] [address] [place] [address] Care Team Providers Care Equal Opportunity Officer Name Role Phone Unavailable Primary Care Provider Unavailabl e Allergies Active Allergy Reactions Criticality Noted Date Comments Gluten Meal 04/20/2023 celiac disease Medications No known medications Social History Tobacco Use Types Packs/Day Years Used Date Smoking Tobacco: Never Assessed Smokeless Tobacco: Former Comments Unknown Sex and Gender Information Value Date Recorded Sex Assigned at Female 04/20/2023 9:25 AM EST Legal Sex Female 9:21 AM EST Gender Identity Choose not to disclose 9:25 AM EST Sexual Orientation Choose not to disclose 2023 9:25 AM EST Plan of Treatment Health Maintenance Due Date Last Done Comments Dental Oral Exam 1990 Dental Prophylaxis 1990 Dental X-Ray: Bitewings 1990 Dental X-Ray: Full Mouth 1990 Depression Screening 1990 HIV Screening 1990 Lipid Panel 1990 SDOH Screening 1990 Disability Screening 1990 IPV Vaccines (2 of 3 - 4-dose series) 09/06/1995 08/09/1995 Alcohol/Substance Use Screening 2002 Family Planning (PISQ) 2005 Hepatitis C Screening 2008 Pap Smear 05/09/2011 Cervical Cancer Screening 2020 HPV/Cotest 2020 Tobacco Screening 04/19/2024 04/20/2023 COVID-19 Vaccine (2 - season) 2024 11/04/2020 Influenza Vaccine (#1) 2024 , 04/19/2010, 12/16/2007, Additional history exists DTaP/Tdap/Td Vaccines (8 - Td or Tdap) 11/29/2026 11/29/2016, 03/16/2014, 08/09/1995, Additional history exists Zoster Vaccines (1 of 2) 2040 RSV Patients and Patients Aged 60 years or older (1 - 1-dose 75+ series) 2065 HIB Vaccines Aged Out 04/04/1991, 06/1990, 1990, Additional history exists No longer eligible based on patient's age to complete this topic Hepatitis B Vaccines Completed 05/24/1995, 10/17/1994, 09/11/1994 Meningococcal Vaccine Aged Out 12/16/2007 No maximilian raheem eligible based on patient's age to complete this topic HPV Vaccines Completed 08/28/2023, 07/2023, 04/19/2010, Additional history exists Hepatitis A Vaccines Aged Out No long er eligible based on patient's age to complete this topic Meningococcal B Vaccine Aged Out No l onger eligible based on patient's age to complete this topic Pneumococcal Vaccine: Pediatrics (0 to 5 Years) and At-Risk Patients (6 to 49) Years Aged Out No longer eligible based on patient's age to complete this topic RSV under 20 months Aged Out No longe r eligible based on patient's age to complete this topic Rotavirus Vaccines Aged Out No longer eligible based on patient's age to complete this topic Insurance [facility] MEDICAID STAND ADULT
== END 2025-01-20 01:15 | disposition left against medical advice (07) ==
LOC: HO.ED 01-20 01:08
PROVIDERS: Registered Nurse Emergency; Emergency Provider Emergency Medicine
DX: R11.2 Nausea with vomiting, unspecified (principal); R19.7 Diarrhea, unspecified; Z03.818 Encounter for observation for suspected exposure to other biological agents ruled out; R56.9 Unspecified convulsions; Z53.29 Procedure and treatment not carried out because of patient's decision for other reasons; F17.200 Nicotine dependence, unspecified, uncomplicated; Z71.6 Tobacco abuse counseling
CPT/HCPCS: 80053; 83605; 83735; 84702; 85025; 87637; 93005; 99283

== ENCOUNTER → 2025-01-19 17:16 | Outpatient (BNV) | payer OTHER, SELFPAY | PROVIDERS: Emergency Provider Emergency Medicine; Visit Provider Internal Medicine | DX: R56.9 Unspecified convulsions (principal) | CPT/HCPCS: 93010 ==